=== PATIENT | female | born 1980 | race Caucasian/White ===

== ENCOUNTER 2018-06-26 14:02 | Outpatient (CLI) | payer MEDICAID, SELFPAY ==
--- NOTE | 2018-06-26 14:06 | DI.REPORT_ITS ---
SYMPTOMS/DIAGNOSIS: LEFT BREAST LUMP, LEFT INNER QUADRANT, N63.24 MAMMOGRAMS: Mammograms were interpreted according to the usual protocol including computer analysis with CAD system, tomosynthesis and C view imaging. The breast tissue is of moderate radiodensity. There is no mass. There are no suspicious calcifications. There is a question regarding an area of palpable abnormality in the inferomedial portion of the left breast and further assessment with ultrasound reveals no evidence of a cyst or mass. SUMMARY: No evidence of malignancy, category 1. Age-adjusted and risk- adjusted follow-up screening mammography is recommended. Breast density category B. MQSA ASSESSMENT OF FINDINGS: Negative. Category 1. Patient will receive a letter notifying them of these results. BI-RADS category B. There are scattered areas of fibroglandular density.
== END 2018-06-26 14:03 ==
PROVIDERS: PCP Nurse Practitioner Family; Visit Provider Obstetrics & Gynecology
DX: N63.24 Unspecified lump in the left breast, lower inner quadrant (principal)
CPT/HCPCS: 76642; 77062; 77066; G0279

== ENCOUNTER 2019-03-01 11:43 | Emergency (ER) | payer MEDICAID, SELFPAY ==
[2019-03-01 11:45] VITALS: BP 108/58; PULSE 63; RESP 14; TEMP 36.7; O2SAT 98
--- NOTE | 2019-03-01 11:50 | ED.GENADUL_ITS ---
Discharge Plan Disposition Patient Disposition: HOME Condition: Good Discharge Details Chief Complaint: EarProblem Clinical Impression: Acute effusion of right ear Primary Care Provider: Marilyn Zapata ED Provider: Josse Virk Home Meds and New Rx's Prescriptions: New loratadine 10 mg capsule 10 mg PO DAILY Qty: 14 RF: 0 fluticasone propionate 50 mcg/actuation spray,suspension 1 spray MILO DAILY Qty: 9.9 RF: 0 No Action potassium chloride 10 MEQ capsule, extended release 10 meq PO BID RF: 0 famotidine 20 MG tablet 20 mg PO DAILY RF: 0 naproxen sodium 550 MG tablet 550 mg PO BID RF: 0 topiramate 200 MG tablet 400 mg PO BID RF: 0 naratriptan [Amerge] 2.5 MG tablet 2.5 mg PO PRN PRNRF: 0 hydroxyzine pamoate [Vistaril] 25 MG capsule 25 mg PO DAILY RF: 0 cholecalciferol (vitamin D3) 1,000 UNITS tablet 1 tab PO DAILY RF: 0 lorazepam 0.5 MG tablet 0.5 mg PO BID PRNRF: 0 magnesium 200 MG tablet 400 mg PO DAILY RF: 0 clotrimazole 15 GM cream 1 applic Topical BID Qty: 1 RF: 0 Discharge Instructions Instructions: Serous Otitis Media (ED) Additional Instructions: Please take medication as directed. Please take Tylenol and Motrin as needed for pain. If you notice any worsening of your symptoms, or any new symptoms such as vomiting, diarrhea, fever, chills, shortness of breath, chest pain, numbness, weakness, discharge from your ear, change in hearing, fever, or fainting , please return immediately to the emergency department for reevaluation. Please follow up with your primary care provider as soon as possible for reassessment and reevaluation. As always, it was a pleasure participating in your medical care today. Referrals: Marilyn Zapata [Primary Care Provider] - Medical Decision Making This is a very pleasant 38-year-old female with no past medical history who presents today for evaluation of right ear pain and fullness. Exam demonstrates evidence of a serous ear effusion, most likely secondary to allergies. No evidence of infection, purulent effusion, or other significant abnormality. No evidence of meningitis, no mastoid tenderness, or signs of otitis externa. Will recommend loratadine, Tylenol and Motrin, and to take his own nasal spray as needed. 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 I have extensively reviewed the treatment plan and discharge instructions with the patient. I have addressed all patient concerns at this time. The patient was made aware of what symptoms to monitor for that would warrant a return to the emergency department. Discussed the plan with the patient, they demonstrate verbal understanding and agreement with our assessment and plan at this time. HPI General Date/Time Provider Initiated Documentation: 03/01/19 11:44 . HPI Narrative: This is a 38-year-old female with no significant past medical history presents today for evaluation of right-sided ear pain. The patient states that for the last 2-3 days she has had mild achiness pressure and decreased hearing in her right ear. She denies any fever or discharge from her ear. She denies any complaints of recent fever, headache, or swimming. No other complaints or modifying factors. No relieving factors. No pertinent family history, IV or illicit drug use, recent surgeries. Related Data Home Medications Medication Instructions Recorded Confirmed cholecalciferol (vitamin D3) 1 tab PO DAILY 09/12/15 01/29/18 famotidine 20 mg PO DAILY 09/12/15 01/29/18 hydroxyzine pamoate [Vistaril] 25 mg PO DAILY 09/12/15 01/29/18 naproxen sodium 550 mg PO BID 09/12/15 01/29/18 naratriptan [Amerge] 2.5 mg PO PRN PRN 09/12/15 01/29/18 potassium chloride 10 meq PO BID 09/12/15 01/29/18 topiramate 400 mg PO BID 09/12/15 01/29/18 clotrimazole 1 applic TOPICAL BID #1 tube 01/29/18 lorazepam 0.5 mg PO BID PRN 01/29/18 01/29/18 magnesium 400 mg PO DAILY 01/29/18 01/29/18 fluticasone propionate 1 spray MILO DAILY #9.9 gm 03/01/19 loratadine 10 mg PO DAILY #14 cap 03/01/19 Previous Rx's Medication Instructions Recorded clotrimazole 1 applic TOPICAL BID #1 tube 01/29/18 fluticasone propionate 1 spray MILO DAILY #9.9 gm 03/01/19 loratadine 10 mg PO DAILY #14 cap 03/01/19 Allergies Allergy/AdvReac Type Severity Reaction Status Date / Time morphine Allergy Intermediate Itching Unverified 03/01/19 11:50 Penicillins AdvReac Intermediate yeast Unverified 03/01/19 11:50 infection codeine AdvReac Nightmares Unverified 03/01/19 11:50 oxycodone AdvReac Nightmares Unverified 03/01/19 11:50 propoxyphene HCl AdvReac Nightmares Unverified 03/01/19 11:50 [From Wygesic] sumatriptan AdvReac Chest pain Unverified 03/01/19 11:50 trazodone AdvReac irritable/g Unverified 03/01/19 11:50 rouchy venlafaxine HCl AdvReac Shakiness Unverified 03/01/19 11:50 [From Effexor] General Stated Complaint: EarProblem WILLOW: 5 Review of Systems Review of Systems All systems reviewed & are unremarkable except as noted in HPI and below PFSH Social History Smoking/Tobacco Use Status: Never Alcohol Intake: never Drug use: Never Substance use type: does not use Do you feel safe at home: Yes Do you feel safe in your relationship?: Yes Exam Narrative Exam Narrative: 1.Const: Well-nourished, Well-developed, appearing stated age 2.Eyes: PERRL, no conjunctival injection, and symmetrical lids. 3.ENT: Atraumatic external nose and ears. Moist MM. Neck: Symmetric, trachea midline, No thyromegaly. Right tympanic membrane demonstrates mild serous effusion, osseous structures are well visualized. No evidence of rupture, purulent fluid, or erythema. Left tympanic membrane demonstrates no evidence of effusion or infection. It is [place] and pearly. Patient demonstrates good movement of cervical neck. There is no nuchal rigidity, no nuchal tenderness. Patient is able to flex the neck without any difficulty or significant pain. N egative Kernig's and Brudzinski sign. 4.CVS: +S1/S2, No murmurs or gallops. Peripheral pulses 2+ and equal in all extremities. Brisk capillary refill in all extremities. 5.RESP: Unlabored respiratory effort. Clear to auscultation bilaterally. No wheezes rales or rhonchi 6.GI: Soft, Nontender/Nondistended, No hepatosplenomegaly. No guarding or rebound. 7.MSK: Normocephalic/Atraumatic, Extremities w/o deformity or ttp No cyanosis or clubbing, Normal movement of all extremities 8.Skin: Warm, Dry. No rashes or lesions. 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 Sensation grossly intact, no focal neurologic deficits. 10.Psych: (AAO) x3. Appropriate mood and affect Course Vital Signs Temperature 36.7 C 03/01/19 11:45 Pulse 63 03/01/19 11:45 Respiratory Rate 14 03/01/19 11:45 Blood Pressure 108/58 L 03/01/19 11:45 Pulse Oximetry 98 03/01/19 11:45 Temperature 36.7 C 03/01/19 11:45 Temperature Source Temporal Artery Scan 03/01/19 11:45 Pulse 63 03/01/19 11:45 Respiratory Rate 14 03/01/19 11:45 Respiratory Effort Non-Labored 03/01/19 11:48 Blood Pressure 108/58 L 03/01/19 11:45 Blood Pressure Position Sitting 03/01/19 11:45 Pulse Oximetry 98 03/01/19 11:45 Oxygen Delivery Method Room Air 03/01/19 11:45 Oxygen Flow Rate 0 03/01/19 11:45 Pain Level 5 03/01/19 11:45
== END 2019-03-01 11:58 | disposition home or self-care (01) ==
PROVIDERS: Emergency Provider Student in an Organized Health Care Education/Training Program; PCP Nurse Practitioner Family
DX: H65.191 Other acute nonsuppurative otitis media, right ear (principal)
CPT/HCPCS: 99282

== ENCOUNTER 2019-08-19 15:44 | Emergency (ER) | payer MEDICAID, SELFPAY ==
[2019-08-19 15:46] VITALS: BP 99/69; PULSE 60; RESP 16; TEMP 36.6; O2SAT 98
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
== END 2019-08-19 16:27 | disposition home or self-care (01) ==
LOC: ER 16:37
PROVIDERS: Emergency Provider Physician Assistant; PCP Nurse Practitioner Family
DX: M25.531 Pain in right wrist (principal); M67.431 Ganglion, right wrist
CPT/HCPCS: 99283; L3908

== ENCOUNTER 2021-02-11 02:38 | Outpatient (CLI) | payer MEDICAID, SELFPAY ==
[2021-02-12 13:21] LABS: COVID-19 RT-PCR UVMMC Result Positive (Negative)
== END 2021-02-11 02:39 | disposition home or self-care (01) ==
LOC: LBO 02:38
PROVIDERS: PCP Nurse Practitioner Family; Visit Provider Nurse Practitioner Family
DX: Z20.822 Contact with and (suspected) exposure to COVID-19 (principal); R09.81 Nasal congestion
CPT/HCPCS: U0003

== ENCOUNTER 2021-05-09 00:53 | Emergency (ER) | payer MEDICAID, SELFPAY ==
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
[2021-05-09 00:58] VITALS: BP 117/62; PULSE 79; RESP 17; TEMP 36.3; O2SAT 98
[2021-05-09] MEDS: Acetaminophen 500 MG TAB 1000 MG PO (01:12)
== END 2021-05-09 01:19 | disposition home or self-care (01) ==
LOC: ER 01:17
PROVIDERS: Emergency Provider Emergency Medicine; PCP Nurse Practitioner Family
DX: S60.221A Contusion of right hand, initial encounter (principal); X58.XXXA Exposure to other specified factors, initial encounter
CPT/HCPCS: 99282